=== PATIENT | female | born 1985 | race Two or more races ===

== ENCOUNTER 2024-06-08 16:45 | Observation (INO) | payer MEDICAID, SELFPAY ==
[2024-06-08] VITALS (8 sets, daily range): BP systolic 138–160; BP diastolic 67–81; PULSE 108–133; RESP 18–100; TEMP 36.9; BMI 32.9
--- NOTE | 2024-06-08 17:05 | XR_ITS ---
EXAMINATION: US transvaginal ORDERING PROVIDER: Laurence Davis MD HISTORY: Cervix not well visualized on examination earlier today at outside hospital. Request for evaluation of cervical length. TECHNIQUE: Multiplanar still ultrasonography of the pelvis was performed using grayscale imaging, supplemented by color and spectral Doppler as needed. Images were performed transabdominally and transvaginally. COMPARISON: None. FINDINGS: Multiple still grayscale and color, as well as cinematic images were obtained transabdominally and transvaginally by radiographer technologist of the cervix. These demonstrate initial cervical measuring 3.6 cm in length, with variable opening of the internal os up to 2.9 cm resulting in cervical shortening. There is variable cervical funneling throughout. Echogenicities are seen within the amniotic fluid. IMPRESSION: Findings concerning for cervical incompetence.
--- NOTE | 2024-06-08 19:08 | ESPR_ITS ---
Documentation for date of: 06/08/24 OB Labor Progress Note Assessment and Plan Comments: Triage Note Megan is a 39yo with SIUP at 20+wk presenting to L&D from [facility] appointment where she was noted to have no measurable cervix on follow-up ultrasound for cervical length. No records available for me to review today, but per patient her cervix measured 1.8cm on prior ultrasound and she was started on vaginal progesterone. She has had no ctx, no abdominal pain, no lof, no vaginal bleeding. Normal movement. Current complicated by: -History of PTD at 36wk, cervical shortening being monitored by [facility] Dr. Pelayo and treated with vaginal progesterone -CHTN, taking labetalol 200mg PO BID -T2DM taking metformin -AMA, age 39 ROS negative other than what was described above. Vitals wnl, afebrile General: well developed, well nourished, nervous but no acute distress, conversant Cardiac: mild tachycardia Lungs: breathing without distress Abdomen: soft, gravid, non-tender, no rebound or guarding Extremities: no edema of BLE SSE: cervix visualized as closed and thick. no membranes bulging through cervix. SCE: 1/50/high, cephalic Doptones: 150's [place]: NO ctx Radiology: EXAMINATION: US transvaginal ORDERING PROVIDER: Laurence Davis MD HISTORY: Cervix not well visualized on examination earlier today at outside hospital. Request for evaluation of cervical length. TECHNIQUE: Multiplanar still ultrasonography of the pelvis was performed using grayscale imaging, supplemented by color and spectral Doppler as needed. Images were performed transabdominally and transvaginally. COMPARISON: None. FINDINGS: Multiple still grayscale and color, as well as cinematic images were obtained transabdominally and transvaginally by chief technologist of the cervix. These demonstrate initial cervical measuring 3.6 cm in length, with variable opening of the internal os up to 2.9 cm resulting in cervical shortening. There is variable cervical funneling throughout. Echogenicities are seen within the amniotic fluid. IMPRESSION: Findings concerning for cervical incompetence. Assessment: Megan is a 39yo with SIUP at 20+wk presenting to L&D from [facility] appointment where she was noted to have no measurable cervix on follow- up ultrasound for cervical length. No evidence of pre-term labor based on SCE and toco. BP's initially high mild range and pulse elevated when patient was very nervous, but over time bp's low mild range and pulse normalized (she notes normal bp's done twice daily at home). Reassuring status. Plan: -I spoke with [facility] Dr. Pelayo who confirmed plan was for patient to receive cerclage, but due to staffing changes, it was not scheduled. He recommends that patient be discharged given reassuring assessment in triage and scheduled for cerclage placement outpatient. -I then spoke with Dr. Regalado who very graciously agreed to perform cerclage for patient on her OR day 06/10. Patient instructed to call first thing tomorrow morning for same day appt with Dr. Regalado so that pre-op exam and counseling can be performed prior to procedure -Advised patient to continue vaginal progesterone (and other medications as prescribed) -Complete vaginal rest and no exertional activity, essentially modified bed rest for the next two days -Discussed return precautions Laurence Davis MD
== END 2024-06-08 19:02 | disposition home or self-care (01) ==
PROVIDERS: Admitting Provider Obstetrics & Gynecology; Visit Provider Obstetrics & Gynecology
DX: Z34.82 Encounter for supervision of other normal pregnancy, second trimester (principal); Z36.89 Encounter for other specified antenatal screening; Z3A.20 20 weeks gestation of pregnancy
CPT/HCPCS: 59025; 59899; 76830

== ENCOUNTER 2024-06-11 10:56 | Inpatient (IN) | payer MEDICAID, SELFPAY ==
[2024-06-10 10:35] VITALS: BMI 35.0
--- NOTE | 2024-06-10 10:45 | EKG_ITS ---
[facility] Test Date: 2024-06-10 Pat Name: LUNA STEIN Department: Room: - Gender: Female Broadcast Producer: RT STUDENT : 1985 Requested By: Joe Browne Order Number: [id number] Reading MD: Joe Browne Measurements Intervals [place] Rate: 95 P: 44 MN: 125 QRS: 7 QRSD: 81 T: 37 QT: 344 QTc: 434 Interpretive Statements SINUS RHYTHM MODERATE VOLTAGE CRITERIA FOR LVH, CONSIDER NORMAL VARIANT [MEETS CRITERIA IN ONE OF: R(aVL), S(V1), R(V5), R(V5/V6)+S(V1)] No previous ECG available for comparison /store/S0/[id number].pdf
[2024-06-10 12:21] LABS: Basophils % (Auto) 0 % (0-2.5); Eosinophils # (Auto) 0.1 Thou/mm3 (0.0-0.5); Eosinophils % (Auto) 1 % (0-10); Hematocrit 34.7 % (36.0-46.0); Hemoglobin 11.6 g/dL (12.0-16.0); Immature Granulocytes % (Auto) 1 % (0-0); Immature Granulocytes Auto 0.04 Thou/mm3 (0.00-0.00); Lymphocytes # (Auto) 1.1 Thou/mm3 (1.0-4.8); Lymphocytes % (Auto) 14 % (10-50); Mean Corpuscular HGB Conc 33.4 g/dl (31.0-37.0); Mean Corpuscular Hemoglobin 28.2 pg (25.0-35.0); Mean Corpuscular Volume 84 fL (80-100); Monocytes # (Auto) 0.6 Thou/mm3 (0.0-0.8); Monocytes % (Auto) 7 % (0-12); Neutrophils # (Auto) 6.5 Thou/mm3 (1.8-7.7); Neutrophils % (Auto) 78 % (37-80); Nucleated Red Blood Cell % 0 /100 WBC (0); Platelet Count 198 Thou/mm3 (140-440); RDW Standard Deviation 42.5 fL (36.4-46.3); Red Blood Count 4.12 Miln/mm3 (4.00-5.20); White Blood Count 8.4 Thou/mm3 (3.6-11.0)
[2024-06-10 12:34] LABS: Anion Gap 7 (7-16); BUN/Creatinine Ratio 10 Ratio (12-20); Blood Urea Nitrogen < 5 mg/dL (9-23); Carbon Dioxide 22.1 mMol/L (20.0-31.0); Chloride 107 mMol/L (98-107); Creatinine (Component) 0.5 mg/dL (0.6-1.3); Sodium 136 mMol/L (136-145)
[2024-06-10 12:35] LABS: Alanine Aminotransferase 17 U/L (10-49); Albumin, Serum 3.8 gm/dL (3.5-5.0); Albumin/Globulin Ratio 1.5 (1.2-2.2); Alkaline Phosphatase 90 U/L (46-116); Aspartate Amino Transferase 19 U/L (0-34); Bilirubin,Total 0.4 mg/dL (0.3-1.2); Calcium 9.3 mg/dL (8.3-10.6); Calcium (Corrected) 9.5 mg/dL (8.5-10.1); Estimated Creatinine Clearance 141.4 mL/min (>60); Globulin 2.5 gm/dL (2.3-3.5); Glucose 121 mg/dL (74-106); HCG,Qualitative Serum Positive; Osmolality,Calculated 270 (275-295); Total Protein 6.3 gm/dL (5.7-8.2); eGFR > 60 See Note
[2024-06-10 13:13] LABS: Hepatitis A Antibody IgM Non Reactive (Non React); Hepatitis B Core Antibody IgM Non Reactive (Non React); Hepatitis B Surface Antigen Non Reactive (Non React); Hepatitis C Antibody Non Reactive (Non React)
[2024-06-10 16:51] LABS: HIV (1&2) Antibody Rapid Non-Reactive
[2024-06-11] VITALS (14 sets, daily range): BP systolic 118–142; BP diastolic 58–88; PULSE 86–105; RESP 13–18; TEMP 36.3–37.1; O2SAT 95–98; BMI 35.0
[2024-06-11] MEDS: INDOMETHACIN 25 MG CAPSULE 50 MG PO ×2 (09:19→17:29)
[2024-06-11] MEDS: RINGERS LACTATED 1000 ML 1,000 ML 20 ML IV ×2 (09:21→18:18)
--- NOTE | 2024-06-11 09:30 | XR_ITS ---
Examination: age Limited Technique: Limited transabdominal sonographic images pelvis Exam date and time: June 11, 2024, 0845 hrs. Indications: Preop cervical cerclage Findings: Viable intrauterine gestation cephalic presentation. spine maternal left. Cardiac motion 164 BPM Impression: Viable intrauterine gestation cephalic presentation
--- NOTE | 2024-06-11 10:57 | SUR.PHASEI ---
received pt and report from DELMY Deutsch and Dr. Crocker. Pt asleep at this time. vss. iv intact - no redness or infiltration noted. no drainage to peripad.
--- NOTE | 2024-06-11 11:10 | ESOP_ITS ---
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 General anesthesia was given without any complications.? A time out was given confirming Megan Haywood was undergoing the following, procedure,allergies, and surgeon.The patient was positioned in the dorsal lithotomy position. The bladder was emptied. The perineum was prepped with Betadine solution per routine. On examination cervix is dilated to 1 to 2 cm with membranes visible at the os. Patient was placed in deep Trendelenburg position. Gloved fingers were inserted to push the membranes up. Ring forceps were used to grasp anterior and posterior lip of the cervix. Using Mersilene tape, a deep bite into the cervical stroma was taken at 12 o'clock position coming out at 10 o'clock position and a pursestring suture was placed all around the cervix avoiding 3:00 and 9 o'clock position. Care was taken not to go through into the endocervical canal and cerclage was tightened at 12 o'clock position and long stitch was kept for easy removal after secure knots. Patient was transferred in stable condition to recovery Estimated blood loss (ml): 5 Surgical staff Operation Date: 06/11/24 10:45 Case Staff Anesthesiologist: Collins Crocker Diagnosis Problem List Completed Was Problem List Reviewed/Reconciled?: Yes
--- NOTE | 2024-06-11 11:15 | SUR.PHASEI ---
pt awake, a&o x4, pt denies any pain. vss stable. peripad remains cdi.
--- NOTE | 2024-06-11 11:30 | XR_ITS ---
Examination: age Limited Technique: Limited transabdominal sonographic images pelvis Exam date and time: June 11, 2024, 12 0 8:00 PM Indications: Preop cerclage surgery today Findings: Cardiac motion 153 BPM Amniotic fluid index 14.5 cm Impression: Cardiac motion 153 BPM
--- NOTE | 2024-06-11 11:30 | SUR.PHASEI ---
Dr Regalado at bedside with patient. Patient made aware by MD that pt will be admitted overnight. Pt stated verbal understanding.
--- NOTE | 2024-06-11 11:48 | SUR.PHASEI ---
pt tolerated water. vss. pt denies any pain. or nausea. peripadremains cdi
--- NOTE | 2024-06-11 12:09 | PD.LDPN ---
Documentation for date of: 06/11/24 OB Labor Progress Note Assessment and Plan Comments: I spoke the patient in recovery updating about the cervical status, She s aware that luis cervix was already open to 1-2 cm and membranes visible at os. The patient was again made aware that there is a high chance of PPROM. Pepe requests to see how the baby is doing , so a stat limited US was ordered. To cotinue Indomethacin. Nicolenet advised to report any contractions , leaking bleeding . Spotting is expected for 48 hours.
--- NOTE | 2024-06-11 12:15 | SUR.PHASEII ---
TRANSFER OF CARE REPORT GIVEN TO DELMY Pena PT IS STABLE CONDITION
--- NOTE | 2024-06-11 12:59 | SUR.PHASEII ---
REPORT GIVEN TO DELMY PERKINS IN OB. VSS. PT DENIES PAIN. PERIPAD REMAINS CDI. PT READY FOR TRANSFER
--- NOTE | 2024-06-11 13:00 | SUR.PHASEII ---
THIS TEXTILE COLORIST DYER SPOKE TO DR WASHINGTON, FOR TRANSFER ORDERS AND TRANSFER MEDICATIONS. RECEIVED ORDERS AT THIS TIME
[2024-06-11] MEDS: ceFAZolin/D5W 1 GM IVPB 1 GM/50 ML BAG IV (18:19)
[2024-06-11] MEDS: LABETALOL 100 MG TABLET 200 MG PO (21:00)
[2024-06-11] MEDS: metFORMIN 500 MG TABLET PO (21:00)
[2024-06-12 00:50] VITALS: TEMP 36.8
[2024-06-12] MEDS: INDOMETHACIN 25 MG CAPSULE 50 MG PO (00:50)
[2024-06-12] MEDS: ceFAZolin/D5W 1 GM IVPB 1 GM/50 ML BAG IV (02:17)
[2024-06-12 02:18] VITALS: BP 122/64; PULSE 85; RESP 18; TEMP 36.8
[2024-06-12 05:56] VITALS: BP 119/59; PULSE 83
[2024-06-12 05:58] VITALS: TEMP 36.8
--- NOTE | 2024-06-12 07:06 | XR_ITS ---
Examination: age Limited Technique: Limited transabdominal sonographic images pelvis Exam date and time: June 12, 2024, 0522 hrs. Indications: Preop cerclage surgery Findings: Viable intrauterine gestation Cardiac motion 167 BPM Amniotic fluid index 13.2 cm Cervix 3.5 cm closed Impression: Cervix 3.5 cm closed
[2024-06-12 07:16] VITALS: BP 119/57; PULSE 81
[2024-06-12 07:17] VITALS: RESP 18; TEMP 37
--- NOTE | 2024-06-12 09:16 | ESDS_ITS ---
DS: Providers Provider Date of admission: 06/11/24 10:56 Primary care physician: Albino Arechiga MD Admitting Provider: London Regalado MD Attending Provider on Admission: London Regalado MD Attending Provider on DC: London Regalado MD Discharging Provider: London Regalado MD DS: Diagnosis Problem List Completed Was Problem List Reviewed/Reconciled?: Yes Summary/Hosp Course Brief History: Patient was seen at bedside , denied any cramping contraction , no leaking fluid or bleeding . Patient was given instruction for light physical activity and pelvic rest . Advised to continue using luis vaginal progesterone, using hygienic precautions Peripartum Data Procedures: Procedures Operation Date: 06/11/24 10:45 Actual Procedure Side Surgeon p Cervical Cerclage London Regalado MD Status at Discharge Cognitive/behavioral status at discharge: stable Time Spent with Patient Time attestation: Total time spent providing and/or coordinating discharge services: Exam Vital Signs Temp Pulse Resp BP Pulse Ox 98.6 F 81 18 119/57 L 97 06/12/24 07:17 06/12/24 07:16 06/12/24 07:17 06/12/24 07:16 06/11/24 12:45 Constitutional Constitutional: no acute distress Routine HEENT Exam Head: Present normocephalic and atraumatic Eye: Present EOMI and PERRL ENT: Present mucous membranes moist Routine Neck Exam Neck: Present supple and trachea midline Routine Respiratory Exam Respiratory: Present chest non-tender, lungs clear, normal breath sounds and no resp distress Routine Cardiovascular Exam Cardiovascular: Present RRR Routine Abdominal Exam Abdominal: Present soft and normoactive bowel sounds Routine Extremities Exam Extremities: Present full ROM Routine Skin Exam Skin: Present intact, dry and warm Routine Neurological Exam Neurological: Present alert, oriented X3 and CN II-XII intact Routine Psychiatric Exam Psychiatric: Present normal affect and normal thought process Discharge Plan Plan Patient Disposition: HOME (Self Care) Prescriptions/Referrals Prescriptions/Med Rec: No Action Vitamin * 1 EACH tablet 1 tab PO QDAY Qty: 0 progesterone micronized [Prometrium] 200 mg capsule 400 mg PO QDAY aspirin 81 mg capsule 81 mg PO QDAY metformin 500 mg/5 mL solution 500 mg PO BID labetalol 200 mg tablet 200 mg PO Q12H Referrals: Albino Arechiga MD [Primary Care Provider] - Patient/Caregiver Discharge Instructions Print Language: Citizen Of [place] Stand Alone Forms: Morenita Award Info., Patient Portal Info Letter Discharge Order Discharge Orders: Discharge (Routine); Ordered 06/12/24 Ordered By: London Regalado Planned Discharge Date 06/12/24
== END 2024-06-12 09:50 | disposition home or self-care (01) | DRG 547 ==
LOC: S4SX 13:36
PROVIDERS: Anesthesiology; Admitting Provider Student in an Organized Health Care Education/Training Program; PCP Family Medicine; Referring Provider Student in an Organized Health Care Education/Training Program; Visit Provider Student in an Organized Health Care Education/Training Program
PROC: 0UVC7ZZ Restriction of Cervix, Via Natural or Artificial Opening (ICD-10-PCS; CPT 57700; principal; 2024-06-11 10:30)
DX: O26.872 Cervical shortening, second trimester (principal); Z3A.20 20 weeks gestation of pregnancy
CPT/HCPCS: 36415; 76815; 80053; 80074; 84703; 85025; 86703; 86850; 86900; 86901; 93005; A4217; A4649; J0689; J2250; J2405; J2704; J2765; J3010; J7120; A9270

== ENCOUNTER 2024-06-26 22:16 | Inpatient (IN) | payer MEDICAID, SELFPAY ==
[2024-06-26] VITALS (8 sets, daily range): PULSE 113–124; O2SAT 95–100; BMI 33.3
[2024-06-26] MEDS: RINGERS LACTATED 1000 ML 1,000 ML 999 ML IV (22:18)
--- NOTE | 2024-06-26 22:24 | XR_ITS ---
Examination: Complete OB ultrasound greater than 14 weeks Date and time of exam: June 26, 2024 10:50 PM INDICATIONS: Leaking amniotic fluid with severe pelvic pain today Findings: Limited study fetus in the vaginal canal, unable to assess sonographically IMPRESSION: Incomplete study as above
[2024-06-26 22:51] LABS: Basophils % (Auto) 0 % (0-2.5); Eosinophils # (Auto) 0.1 Thou/mm3 (0.0-0.5); Eosinophils % (Auto) 1 % (0-10); Hematocrit 32.8 % (36.0-46.0); Hemoglobin 11.2 g/dL (12.0-16.0); Immature Granulocytes % (Auto) 1 % (0-0); Immature Granulocytes Auto 0.14 Thou/mm3 (0.00-0.00); Lymphocytes # (Auto) 1.9 Thou/mm3 (1.0-4.8); Lymphocytes % (Auto) 12 % (10-50); Mean Corpuscular HGB Conc 34.1 g/dl (31.0-37.0); Mean Corpuscular Hemoglobin 27.6 pg (25.0-35.0); Mean Corpuscular Volume 81 fL (80-100); Monocytes # (Auto) 1.5 Thou/mm3 (0.0-0.8); Monocytes % (Auto) 10 % (0-12); Neutrophils # (Auto) 11.9 Thou/mm3 (1.8-7.7); Neutrophils % (Auto) 77 % (37-80); Nucleated Red Blood Cell % 0 /100 WBC (0); Platelet Count 196 Thou/mm3 (140-440); RDW Standard Deviation 37.7 fL (36.4-46.3); Red Blood Count 4.06 Miln/mm3 (4.00-5.20); White Blood Count 15.6 Thou/mm3 (3.6-11.0)
[2024-06-26] MEDS: ceFAZolin/D5W 2 GM IV 2 GM/100 ML BAG IV (22:58)
[2024-06-26] MEDS: FAMOTIDINE INJ 10 MG/ML VIAL 2 ML 20 MG IV (23:00)
[2024-06-26] MEDS: CITRIC ACID/SODIUM CITR 15 ML UDC (BICITRA) 30 ML PO (23:01)
[2024-06-26 23:15] LABS: Fibrinogen 421 mg/dL (175-375); Partial Thromboplastin Time 24.7 Seconds (22.0-36.0); Prothrombin Time 10.5 Seconds (9.0-12.2)
[2024-06-26 23:20] LABS: Alanine Aminotransferase 12 U/L (10-49); Albumin, Serum 3.6 gm/dL (3.5-5.0); Albumin/Globulin Ratio 1.4 (1.2-2.2); Alkaline Phosphatase 114 U/L (46-116); Anion Gap 8 (7-16); Aspartate Amino Transferase 18 U/L (0-34); BUN/Creatinine Ratio 15 Ratio (12-20); Bilirubin,Total 0.3 mg/dL (0.3-1.2); Blood Urea Nitrogen 6 mg/dL (9-23); Calcium (Corrected) 9.3 mg/dL (8.5-10.1); Carbon Dioxide 20.9 mMol/L (20.0-31.0); Chloride 108 mMol/L (98-107); Creatinine (Component) 0.4 mg/dL (0.6-1.3); Globulin 2.5 gm/dL (2.3-3.5); Glucose 107 mg/dL (74-106); Osmolality,Calculated 271 (275-295); Potassium 3.9 mMol/L (3.4-5.1); Sodium 137 mMol/L (136-145); Total Protein 6.1 gm/dL (5.7-8.2); Uric Acid 3.6 mg/dL (3.1-7.8); eGFR > 60 See Note
[2024-06-26 23:35] LABS: Syphilis Nonreactive (Nonreactive)
[2024-06-27] VITALS (38 sets, daily range): BP systolic 108–172; BP diastolic 57–104; PULSE 85–148; RESP 16–18; TEMP 36.6–37; O2SAT 94–99
--- NOTE | 2024-06-27 00:47 | PD.LDHP ---
Documentation for date of: 06/27/24 OB Labor/Induct. HPI History of Present Illness Chief complaint: Severe abdominal pain : 3 Para: 2 Term pregnancies: 1 pregnancies: 1 Living children: 2 History of Vaginal deliveries: 2 History of sections: No History of : No JANE: 10/25/24 Gestational Age (weeks): 22 Gestational Age (days): 5 History of present illness: Patient is a 39-year-old -1-0-2 at 22-5/7 weeks who presented to triage with severe abdominal pain. Shortly after admission she ruptured her membranes and there was thick meconium noted. Patient had a cerclage placed by Dr. Vang on 06/11/2024. Patient apparently was 1 to 2 cm with membranes present at the os according to Dr. Vang's notes. Patient had a cerclage placed and went home in stable condition on bedrest. She followed up with the maternal- medicine doctor yesterday and baby was doing well and the cervix was long thick and closed. Patient presented suddenly tonight with abdominal pain to triage where she ruptured her bag and then quickly went on to progress to full-blown labor. Comments: Vaginal exam performed in triage revealed parts in the vagina. I tried to perform a bedside ultrasound and there was no fluid left. heart tones were in the 150s. Patient was consented for an emergent cerclage removal in the OR downstairs. History of Present Dating criteria: LMP confirmed by 1st trimester US Adequate Care: Yes Ultrasounds: normal 1st trimester US and normal mid trimester US Abnormal ultrasound findings: Patient was noted to have a short cervix on her 20-week structural survey which was why she had a cerclage placed approximately 20 weeks Obstetrical complications: gestational diabetes and gestational hypertension Medical complications: other (Advanced maternal age) Narrative: Patient on labetalol 200 TID and metformin 500 PO BID this . Labs Maternal Blood Type: O Pos Labs: Positive: Rubella Titre, Negative: RPR, Hepatitis B, HIV, Chlamydia and Gonorrhea and Unknown: Herpes Type 1, Herpes Type 2, Group Beta Strep and Covid-19 Narrative: First trimester hemoglobin A1c was 5.5 Review of Systems Review of Systems Narrative Review of Systems: Patient reports sharp abdominal pain Past Medical History Past Medical History CARDIAC: Positive Hypertension (On labetalol 200 3 times daily) ENDOCRINE: Positive Diabetes Mellitus Type 2 (On metformin 500 twice daily) Surgical History SURGICAL: Negative Section Meds Home Medications and Allergies Home Medications ?Medication ?Instructions ?Recorded ?Confirmed ?Type Vitamin * 1 tab PO QDAY #0 tabs 04/13/17 06/11/24 History aspirin 81 mg capsule 81 mg PO QDAY 06/10/24 06/11/24 History labetalol 200 mg tablet 200 mg PO Q12H 06/10/24 06/11/24 History metformin 500 mg/5 mL oral solution 500 mg PO BID 06/10/24 06/11/24 History progesterone micronized 200 mg 400 mg PO QDAY 06/10/24 06/11/24 History capsule (Prometrium) Allergies Allergy/AdvReac Type Severity Reaction Status Date / Time No Known Allergies Allergy Unknown Verified 06/26/24 22:27 OB Exam Physical Exam Vital signs: Pulse BP Pulse Ox 120 H 156/73 H 99 06/27/24 00:40 06/27/24 00:40 06/27/24 00:45 Routine Abdominal Exam Abdominal: Present soft Comments: Patient in severe pain. Appears to be in labor. Detailed Labor and Delivery Exam Dilation (cm): 10 Effacement (%): 100 station: +4 Presentation: Vertex Membranes: ruptured Amniotic fluid: thick meconium Baseline heart rate: 150 monitor decelerations: None senior care variability: Minimal (3-5) Contraction intensity: Strong Comments: heart tones in the 150s. Appropriate for 22 weeks. Patient in large amount of abdominal pain. parts present in vagina on cervical exam. Patient was cerclage in place. Patient consented for cerclage removal in OR for active labor. Pediatric team was notified. OB Results Labs 06/26/24 22:05 06/26/24 22:05 Labs: Short CBC 06/26/24 Range/Units 22:05 WBC 15.6 H (3.6-11.0) Thou/mm3 Hgb 11.2 L (12.0-16.0) g/dL Hct 32.8 L (36.0-46.0) % Plt Count 196 (140-440) Thou/mm3 BMP 06/26/24 22:05 Sodium 137 Potassium 3.9 Chloride 108 H Carbon Dioxide 20.9 BUN 6 L Creatinine 0.4 L Glucose 107 H Calcium 9.0 Liver Function 06/26/24 Range/Units 22:05 Total Bilirubin 0.3 (0.3-1.2) mg/dL AST 18 (0-34) U/L ALT 12 (10-49) U/L Alkaline Phosphatase 114 (46-116) U/L Albumin 3.6 (3.5-5.0) gm/dL OB Assessment & Plan Assessment and Plan (1) AMA (advanced maternal age) multigravida 35+: Status: Acute (2) Gestational diabetes mellitus: Status: Acute (3) Chronic hypertension during , antepartum: Status: Acute Assessment and plan: On labetalol 200 mg 3 times daily and baby aspirin (4) Cervical incompetence affecting management of in second trimester, antepartum: Status: Acute Assessment and plan: Cerclage placed by Dr. Regalado 06/11/2024 (5) labor in second trimester with delivery: Status: Acute Assessment and plan: Patient delivered nonviable male weighing 551 g Additional Plan Additional Plan Comment: Patient taken to the OR for an emergent cerclage removal. Delivered in the OR. And had to have all her cervical lacerations repaired. This will be dictated on a separate op report. (1) AMA (advanced maternal age) multigravida 35+ Qualifiers: Trimester: second trimester Qualified Code(s): O09.522 - Supervision of elderly multigravida, second trimester (2) Gestational diabetes mellitus Qualifiers: Gestational diabetes mellitus control: oral hypoglycemic-controlled Trimester: second trimester Qualified Code(s): O24.415 - Gestational diabetes mellitus in , controlled by oral hypoglycemic drugs (5) labor in second trimester with delivery Qualifiers: Fetus number: single or unspecified fetus Qualified Code(s): O60.12X0 - labor second trimester with delivery second trimester, not applicable or unspecified
--- NOTE | 2024-06-27 01:02 | PD.ANESPROG ---
Documentation for date of: 06/27/24 ANESTHESIA NOTE: Patient had monitored sedation for emergent cerclage removal turned into vaginal delivery. I promptly responded and went up to OB triage to assess this patient, who was with her and the OB surgeon and multiple other OB staff at bedside. She appeared in significant distress from her abdomen and I obtained informed anesthesia consent expeditiously from them both and discussed the case with the OB surgeon and then patient was brought to OR with team. Patient was placed in lithotomy position, placed on monitors, on face mask O2, monitored sedation started and almost immediately the OB surgeon noted vaginal expulsion/delivery of fetus with blood clots. She tolerated the procedure well and taken to OB post op alert and NAD. She had elevated HR and BP pre-op and post op and she takes Labetolol pre-op and I discussed with her RN to follow up her vitals and check with OB to resume her BB if needed. Joe Browne MD Anesthesia Progress Note Progress Note Most recent Vital Signs: Last Vital Signs Pulse 118 H 06/27/24 01:00 BP 135/80 H 06/27/24 01:00 Pulse Ox 98 06/27/24 01:00
--- NOTE | 2024-06-27 01:11 | PD.GYNPROC ---
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 - ADMISSIONS DIRECTOR Procedure Date of procedure: 06/27/24 Procedure Performed: 1. delivery of 22-5/7 weeks fetus. 2. Exam under anesthesia 3.Repair of multiple cervical lacerations. Indication: Patient is a 39-year-old -1-0-2 who was a patient at [facility]. She apparently was noted to have a short cervix on her 20-week scan. Dr. Vang took her to the operating room for a cerclage placement on 06/11/2024. At the time her cervix was 1 to 2 cm with some membranes present. Patient was doing well and on bedrest and pelvic rest until today when she presented to triage with acute abdominal pain went on to rapidly break her bag and go into active labor. She was consented for an emergent cerclage removal. Pre-Op diagnosis: 1. Intrauterine at 22-5/7 weeks 2. Cervical incompetence status post placement of cerclage 06/11/2024 3. Active labor. 4. Premature rupture of membranes with meconium present Post-Op diagnosis: Same Anesthesia type: other (Conscious sedation) Procedure description: After obtaining informed consent through an composition tile layer the patient was brought back to the operating room downstairs in the main OR. She was positioned in Richie stirups and given conscious sedation and before we could get everything situated she pushed once and delivered a barely viable male fetus with a heartbeat. The cord was clamped and cut and the infant was handed off to the waiting pediatric nurse who brought the patient to the NICU attending to be examined. The placenta was then manually removed and handed off the operating field to be sent down to pathology. The patient's cerclage was hanging off parts of her cervix which was torn and at least 4 different places. A weighted speculum was inserted into the patient's vagina and the patient was given 2 g of Ancef by anesthesia. A ring forcep was placed at the 12 o'clock position and the cervix was carefully examined for any lacerations . These were repaired using interrupted [id number] sutures of 2-0 chromic. This was done circumferentially in each area around the cervix that was noted to be bleeding. The atient was given TXA and Pitocin. Bovie electrocautery was called for as was silver nitrate. Once the cervical lacerations were repaired, the cervix was still noted to be oozing a small amount. Milton hemostatic powder was called for and was placed on the cervix followed by a slightly moist vaginal packing in order to put pressure on the cervix. At the end of the case patient's bleeding was noted to be scant. The patient tolerated the procedure well, sponge ,lap ,needle , and instrument counts were correct x 2 she went to the recovery area awake and in stable condition Fluids: crystalloid Fluid amount (mL): 1,200 Urine output (mL): 300 Specimen: other (Placenta was sent down to pathology) Estimated blood loss (ml): 600 Findings: Liveborn male born at 2313 with a heartbeat. Apgars were 1,0 and0 weight was 580 g Narrative: Patient had a large amount of bleeding from multiple tears on her cervix. These were stitched carefully. She was also given TXA, Pitocin, and her cervix was covered in Milton and packed with vaginal packing to stop the bleeding. Surgical staff Dr Reggie KAN Assisted by two surgical technicians. Operation Date: 06/26/24 23:45 <No data on this case meets the specified criteria> Diagnosis Discharge Diagnosis (1) labor in second trimester with delivery: Status: Acute (2) Cervical incompetence affecting management of in second trimester, antepartum: Status: Acute (3) Chronic hypertension during , antepartum: Status: Acute (4) Gestational diabetes mellitus: Status: Acute (5) AMA (advanced maternal age) multigravida 35+: Status: Acute Problem List Completed Was Problem List Reviewed/Reconciled?: Yes (1) labor in second trimester with delivery Qualifiers: Fetus number: single or unspecified fetus Qualified Code(s): O60.12X0 - labor second trimester with delivery second trimester, not applicable or unspecified (4) Gestational diabetes mellitus Qualifiers: Gestational diabetes mellitus control: oral hypoglycemic-controlled Trimester: second trimester Qualified Code(s): O24.415 - Gestational diabetes mellitus in , controlled by oral hypoglycemic drugs (5) AMA (advanced maternal age) multigravida 35+ Qualifiers: Trimester: second trimester Qualified Code(s): O09.522 - Supervision of elderly multigravida, second trimester
[2024-06-27 05:57] LABS: Amphetamine/Metham Scrn,Ur OB Negative (Negative); Benzoylecgonine Screen, Ur OB Negative (Negative); Opiate Screen,Urine OB Negative (Negative); THC Screen,Urine OB Negative (Negative)
[2024-06-27 07:59] LABS: Basophils % (Auto) 0 % (0-2.5); Eosinophils % (Auto) 0 % (0-10); Hematocrit 29.4 % (36.0-46.0); Hemoglobin 10.5 g/dL (12.0-16.0); Immature Granulocytes % (Auto) 1 % (0-0); Immature Granulocytes Auto 0.12 Thou/mm3 (0.00-0.00); Lymphocytes # (Auto) 1.4 Thou/mm3 (1.0-4.8); Lymphocytes % (Auto) 8 % (10-50); Mean Corpuscular HGB Conc 35.7 g/dl (31.0-37.0); Mean Corpuscular Hemoglobin 28.2 pg (25.0-35.0); Mean Corpuscular Volume 79 fL (80-100); Monocytes # (Auto) 1.2 Thou/mm3 (0.0-0.8); Monocytes % (Auto) 7 % (0-12); Neutrophils % (Auto) 84 % (37-80); Nucleated Red Blood Cell % 0 /100 WBC (0); Platelet Count 187 Thou/mm3 (140-440); RDW Standard Deviation 37.3 fL (36.4-46.3); Red Blood Count 3.73 Miln/mm3 (4.00-5.20); White Blood Count 17.8 Thou/mm3 (3.6-11.0)
[2024-06-27] MEDS: LABETALOL 100 MG TABLET 200 MG PO ×2 (08:33→21:02)
[2024-06-27] MEDS: PRENATAL VITAMIN/FE FUM/FA TABLET 1 TAB PO (08:34)
--- NOTE | 2024-06-27 09:10 | PC.NURSE ---
Dr. Hyatt removed vaginal packing
--- NOTE | 2024-06-27 09:11 | PD.LDPPPRG ---
Subjective Subjective Interval history: Evaluated patient at bedside. Vitals are stable. Vaginal packing was removed. Minimal oozing after packing removal. Exam Vital Signs Temp Pulse Resp BP Pulse Ox O2 Del Method 98.6 F 97 18 135/81 H 99 Room Air 06/27/24 08:10 06/27/24 08:33 06/27/24 08:10 06/27/24 08:33 06/27/24 08:10 06/27/24 08:10 Constitutional Constitutional: no acute distress Routine HEENT Exam Head: Present normocephalic and atraumatic Eye: Present EOMI and PERRL ENT: Present mucous membranes moist Routine Neck Exam Neck: Present supple and trachea midline Routine Respiratory Exam Respiratory: Present chest non-tender, lungs clear, normal breath sounds and no resp distress Routine Cardiovascular Exam Cardiovascular: Present RRR Routine Abdominal Exam Abdominal: Present soft and normoactive bowel sounds Routine Extremities Exam Extremities: Present full ROM Routine Skin Exam Skin: Present intact, dry and warm Routine Neurological Exam Neurological: Present alert, oriented X3 and CN II-XII intact Routine Psychiatric Exam Psychiatric: Present normal affect and normal thought process Objective Labs 06/27/24 07:01 06/26/24 22:05 Labs: Laboratory Results - last 24 hr 06/26/24 06/26/24 06/27/24 22:02 22:05 07:01 WBC 15.6 H 17.8 H RBC 4.06 3.73 L Hgb 11.2 L 10.5 L Hct 32.8 L 29.4 L MCV 81 79 L MCH 27.6 28.2 MCHC 34.1 35.7 RDW Std Deviation 37.7 37.3 Plt Count 196 187 Neut % (Auto) 77 84 H Lymph % (Auto) 12 8 L [place] % (Auto) 10 7 Eos % (Auto) 1 0 Baso % (Auto) 0 0 Neut # (Auto) 11.9 H 15.0 H Lymph # (Auto) 1.9 1.4 [place] # (Auto) 1.5 H 1.2 H Eos # (Auto) 0.1 0.0 Baso # (Auto) 0.0 0.0 Immature Gran # (Auto) 0.14 H 0.12 H Absolute Nucleated RBC 0.00 0.00 Immature Gran % 1 H 1 H Nucleated RBC % 0 0 PT 10.5 INR 1.0 APTT 24.7 Fibrinogen 421 H Sodium 137 Potassium 3.9 Chloride 108 H Carbon Dioxide 20.9 Anion Gap 8 BUN 6 L Creatinine 0.4 L Estim Creat Clear Calc Not Performed. eGFR > 60 BUN/Creatinine Ratio 15 Glucose 107 H Calculated Osmolality 271 L Uric Acid 3.6 Calcium 9.0 Corrected Calcium 9.3 Total Bilirubin 0.3 AST 18 ALT 12 Alkaline Phosphatase 114 Total Protein 6.1 Albumin 3.6 Globulin 2.5 Albumin/Globulin Ratio 1.4 Urine Opiates Screen Negative U Amphetamin/Meth Scrn Negative U Cocaine Metab Screen Negative U Marijuana (THC) Screen Negative Syphilis Serology Nonreactive Blood Type O Positive Antibody Screen NEGATIVE Blood Bank Wristband ID Yes Assessment & Plan Problem List (1) labor in second trimester with delivery: Status: Acute (2) Cervical incompetence affecting management of in second trimester, antepartum: Status: Acute Assessment and plan: Patient is status post removal of vaginal packing. Minimal bleeding. Will remove Coleman catheter and remove SCDs. Encourage oral intake, Hep-Lock IV. Plan to discharge home tomorrow (3) Chronic hypertension during , antepartum: Status: Acute (4) Gestational diabetes mellitus: Status: Acute (5) AMA (advanced maternal age) multigravida 35+: Status: Acute Time Spent With Patient Time: Total time spent is greater than 50% in coordination of care (as documented) at patient's floor/unit and/or counseling patient:
[2024-06-27] MEDS: metFORMIN 500 MG TABLET PO ×2 (09:24→21:01)
--- NOTE | 2024-06-27 12:27 | PC.NURSE ---
1215: Deshawn Zimmerman and Adebayo uGpta here from [facility]'s Office 1221: Beto from [facility] notified parents are ready for fetus to be picked up
[2024-06-28 04:10] VITALS: BP 134/76; PULSE 86; RESP 16; TEMP 36.6; O2SAT 99
--- NOTE | 2024-06-28 05:38 | ESPR_ITS ---
Subjective Subjective Interval history: Delivery type: Extreme , status post removal of cervical cerclage in the operating room. Patient is now stable Patient doing well this morning. No acute complaints. Ambulating, tolerating p.o. and voiding without difficulty. HTN/Pre-Eclampsia screen: No chest pain, shortness of breath, headache, visual changes, epigastric or right upper quadrant pain. Lochia diminishing., No signs of infection or sepsis Bowel: Flatus+/ BM+ Exam Vital Signs Temp Pulse Resp BP Pulse Ox O2 Del Method 97.9 F 86 16 134/76 H 99 Room Air 06/28/24 04:10 06/28/24 04:10 06/28/24 04:10 06/28/24 04:10 06/28/24 04:10 06/28/24 04:10 Constitutional Constitutional: no acute distress Routine HEENT Exam Head: Present normocephalic and atraumatic Eye: Present EOMI and PERRL ENT: Present mucous membranes moist Routine Neck Exam Neck: Present supple and trachea midline Routine Respiratory Exam Respiratory: Present chest non-tender, lungs clear, normal breath sounds and no resp distress Routine Cardiovascular Exam Cardiovascular: Present RRR Routine Abdominal Exam Abdominal: Present soft and normoactive bowel sounds Routine Extremities Exam Extremities: Present full ROM Routine Skin Exam Skin: Present intact, dry and warm Routine Neurological Exam Neurological: Present alert, oriented X3 and CN II-XII intact Routine Psychiatric Exam Psychiatric: Present normal affect and normal thought process Objective Labs 06/27/24 07:01 06/26/24 22:05 Labs: Laboratory Results - last 24 hr 06/26/24 06/27/24 22:02 07:01 WBC 17.8 H RBC 3.73 L Hgb 10.5 L Hct 29.4 L MCV 79 L MCH 28.2 MCHC 35.7 RDW Std Deviation 37.3 Plt Count 187 Neut % (Auto) 84 H Lymph % (Auto) 8 L [place] % (Auto) 7 Eos % (Auto) 0 Baso % (Auto) 0 Neut # (Auto) 15.0 H Lymph # (Auto) 1.4 [place] # (Auto) 1.2 H Eos # (Auto) 0.0 Baso # (Auto) 0.0 Immature Gran # (Auto) 0.12 H Absolute Nucleated RBC 0.00 Immature Gran % 1 H Nucleated RBC % 0 Urine Opiates Screen Negative U Amphetamin/Meth Scrn Negative U Cocaine Metab Screen Negative U Marijuana (THC) Screen Negative Assessment & Plan Problem List (1) labor in second trimester with delivery: Status: Acute Assessment and plan: PPD/POD#2 1. Continue routine care 2. Transition to PO meds. 3. Encourage to ambulate 4. Anticipate discharge home today. (2) Cervical incompetence affecting management of in second trimester, antepartum: Status: Acute (3) Chronic hypertension during , antepartum: Status: Acute (4) Gestational diabetes mellitus: Status: Acute (5) AMA (advanced maternal age) multigravida 35+: Status: Acute Time Spent With Patient Time: Total time spent is greater than 50% in coordination of care (as documented) at patient's floor/unit and/or counseling patient:
--- NOTE | 2024-06-28 05:39 | PD.LDDS ---
DS: Providers Provider Date of admission: 06/26/24 22:29 Primary care physician: Physician No Primary/Family Admitting Provider: Amanda [facility] MD ([facility]) Attending Provider on Admission: Danie Hyatt MD Attending Provider on DC: Danie Hyatt MD Discharging Provider: Danie Hyatt MD DS: Diagnosis Discharge Diagnosis (1) labor in second trimester with delivery: Status: Acute (2) Cervical incompetence affecting management of in second trimester, antepartum: Status: Acute (3) Gestational diabetes mellitus: Status: Acute (4) Chronic hypertension during , antepartum: Status: Acute Problem List Completed Was Problem List Reviewed/Reconciled?: Yes Summary/Hosp Course Brief History: Patient is a 39-year-old -1-0-2 at 22-5/7 weeks who presented to triage with severe abdominal pain. Shortly after admission she ruptured her membranes and there was thick meconium noted. Patient had a cerclage placed by Dr. Vang on 06/11/2024. Patient apparently was 1 to 2 cm with membranes present at the os according to Dr. Vang's notes. Patient had a cerclage placed and went home in stable condition on bedrest. She followed up with the maternal- medicine doctor yesterday and baby was doing well and the cervix was long thick and closed. Patient presented suddenly tonight with abdominal pain to triage where she ruptured her bag and then quickly went on to progress to full-blown labor. Peripartum Data Procedures: Procedures Operation Date: 06/26/24 23:45 Actual Procedure Side Surgeon p Vaginal Delivery in OR Amanda Chambers ([facility])MD Time Spent with Patient Time attestation: Total time spent providing and/or coordinating discharge services: Exam Vital Signs Temp Pulse Resp BP Pulse Ox O2 Del Method 97.9 F 86 16 134/76 H 99 Room Air 06/28/24 04:10 06/28/24 04:10 06/28/24 04:10 06/28/24 04:10 06/28/24 04:10 06/28/24 04:10 Discharge Plan Plan Patient Disposition: HOME (Self Care) Patient condition on transfer: Stable Prescriptions/Referrals Prescriptions/Med Rec: New metformin 500 mg Tablet 500 mg PO BID 30 Days Qty: 60 0RF ibuprofen 400 mg Tablet 800 mg PO Q8H PRN (Reason: See Comments) 10 Days Qty: 40 0RF labetalol 100 mg Tablet 200 mg PO BID 30 Days Qty: 60 2RF Discontinued Vitamin * 1 EACH tablet 1 tab PO QDAY Qty: 0 progesterone micronized [Prometrium] 200 mg capsule 400 mg PO QDAY aspirin 81 mg capsule 81 mg PO QDAY metformin 500 mg/5 mL solution 500 mg PO BID labetalol 200 mg tablet 200 mg PO Q12H Referrals: London Regalado MD [Physician] - No Primary/Family,Physician [Primary Care Provider] - Patient/Caregiver Discharge Instructions Meds to Beds: Yes Education Materials: After a Vaginal , Understanding Labor, Preg Blood Sugar Print Language: Bulgarian Stand Alone Forms: [facility] Award Info., Patient Portal Info Letter, DC from Surgery Discharge Order Discharge Orders: Discharge (Routine); Ordered 06/28/24 Ordered By: Danie Hyatt Planned Discharge Date 06/28/24 (1) labor in second trimester with delivery Qualifiers: Fetus number: single or unspecified fetus Qualified Code(s): O60.12X0 - labor second trimester with delivery second trimester, not applicable or unspecified (3) Gestational diabetes mellitus Qualifiers: Gestational diabetes mellitus control: oral hypoglycemic-controlled Trimester: second trimester Qualified Code(s): O24.415 - Gestational diabetes mellitus in , controlled by oral hypoglycemic drugs
--- NOTE | 2024-06-28 07:48 | PC.CC ---
Maritza MANCINI was consulted by DELMY Christianson regarding demise. Maritza MANCINI made [id number] contact with patient. ASW introduced self, role, and reason for visit.?Patient appeared alert and oriented to self, location, and situation.?Patient was pleasant and engaged in initial assessment. Patient reports she has emotional support from her family immediate and extended. Per patient, she felt better yesterday after the Deacon came to pray with her and the family. SW provided psychoeducation regarding baby blues and Post- Depression, as well as counseling groups at [facility]. SW provided community resources: Warm Line and Crisis Line. ASW provided life of legacy information and group information. ASW to remain available. ASW provided update to DELMY Christianson.
[2024-06-28 08:10] VITALS: BP 145/80; PULSE 95; RESP 18; TEMP 37.1; O2SAT 99
[2024-06-28 08:13] VITALS: BP 145/80; PULSE 95
[2024-06-28] MEDS: metFORMIN 500 MG TABLET PO (08:13)
[2024-06-28] MEDS: PRENATAL VITAMIN/FE FUM/FA TABLET 1 TAB PO (08:13)
[2024-06-28] MEDS: LABETALOL 100 MG TABLET 200 MG PO (08:13)
== END 2024-06-28 09:48 | disposition home or self-care (01) | DRG 542 ==
PROVIDERS: Admitting Provider Obstetrics & Gynecology; Visit Provider Obstetrics & Gynecology
PROC: 0UVC7ZZ Restriction of Cervix, Via Natural or Artificial Opening (ICD-10-PCS; CPT 57700; principal; 2024-06-26 23:30)
DX: O60.12X0 Preterm labor second trimester with preterm delivery second trimester, not applicable or unspecified (principal); O71.3 Obstetric laceration of cervix; O77.0 Labor and delivery complicated by meconium in amniotic fluid; Z37.0 Single live birth; Z3A.22 22 weeks gestation of pregnancy; O34.32 Maternal care for cervical incompetence, second trimester; O13.4 Gestational [pregnancy-induced] hypertension without significant proteinuria, complicating childbirth; O26.872 Cervical shortening, second trimester; O42.912 Preterm premature rupture of membranes, unspecified as to length of time between rupture and onset of labor, second trimester; Z79.82 Long term (current) use of aspirin; Z79.899 Other long term (current) drug therapy; Z79.84 Long term (current) use of oral hypoglycemic drugs
CPT/HCPCS: 36415; 59025; 59409; 76805; 80053; 80307; 81001; 84550; 85025; 85384; 85610; 85730; 86780; 86850; 86900; 86901; 94762; A4217; A4649; J0689; J2210; J2590; J2704; J2765; J3010; J3490; J7120; A9270